=== PATIENT | female | born 1955 | race Two or more races ===

== ENCOUNTER 2022-01-27 19:28 | Inpatient (IN) | payer MEDICARE, OTHER ==
[~2022-01-27] VITALS: Ht 157.5 cm; Wt 43.1 kg
--- NOTE | 2022-01-27 19:50 | NUR ---
BIBRA 89 FROM HOME C/O ABDOMINAL DISTENSION WITH HISTORY OF ASCITES. PT AWAKE AND ALERT TOLERATING RA WELL WITHOUT SOB. CHANGED INTO GOWN AND P-LACED ON MONITOR AND V/S WNL.
--- NOTE | 2022-01-27 20:00 | NUR ---
DR. MYLES RIOS AT PT'S BEDSIDE
--- NOTE | 2022-01-27 20:25 | NUR ---
RAC #20G S/L; PATENT AND INTACT. SHIP STEWARD AT PT'S BEDSIDE
--- NOTE | 2022-01-27 20:29 | NUR ---
PT TAKEN TO CT SCAN VIA [facility]
--- NOTE | 2022-01-27 20:39 | NUR ---
[facility]
[2022-01-27 20:45] LABS: BASOPHILS % (AUTO) 0.2 % (0.0-2.0); EOSINOPHILS % (AUTO) 0.4 % (0.0-6.0); HEMATOCRIT 31 % (33-45); HEMOGLOBIN 10.5 g/dL (11.5-14.8); LYMPHOCYTES # (AUTO) 0.6 K/uL (0.8-4.8); LYMPHOCYTES % (AUTO) 12.3 % (20.0-44.0); MEAN CORPUSCULAR HGB CONC 34 g/dl (31.0-36.0); MEAN CORPUSCULAR VOLUME 105 fL (82-100); MONOCYTES # (AUTO) 0.6 K/uL (0.1-1.30); MONOCYTES % (AUTO) 10.7 % (2.0-12.0); NEUTROPHILS % (AUTO) 76.4 % (43.0-81.0); PLATELET COUNT (AUTO) 132 K/uL (150-450); RED BLOOD CELL COUNT(AUTO) 2.97 MIL/uL (4.0-5.2); WHITE BLOOD COUNT (AUTO) 5.3 K/uL (4.3-11.0)
[2022-01-27 20:51] LABS: CALCIUM, SERUM 9.1 mg/dL (8.5-10.1); CARBON DIOXIDE 19 mmol/L (21-32); CHLORIDE 98 mmol/L (98-107); CREATININE 1.2 mg/dL (0.6-1.3); GLUCOSE 113 mg/dL (74-106); SODIUM SERUM 130 mmol/L (136-145); UREA NITROGEN, BLOOD 79 mg/dL (7-18)
[2022-01-27 20:57] LABS: ALANINE AMINOTRANSFERASE 94 U/L (12-78); ALBUMIN 2.6 g/dL (3.4-5.0); ALKALINE PHOSPHATASE 311 U/L (46-116); ASPARTATE AMINOTRANSFERASE 148 U/L (15-37); BILIRUBIN,DIRECT 7.3 mg/dL (0.0-0.2); LIPASE 129 U/L (73-393); TOTAL PROTEIN, SERUM 6.2 g/dL (6.4-8.2)
[2022-01-27 21:19] LABS: BILIRUBIN,URINE MODERATE (NEGATIVE); LEUKOCYTE ESTERASE ,URINE NEGATIVE (NEGATIVE); NITRITE, URINE NEGATIVE (NEGATIVE); PROTEIN,URINE NEGATIVE (NEGATIVE); UGLUCOSE NEGATIVE (NEGATIVE)
[2022-01-27 21:20] LABS: COLOR,URINE DARK YELLOW (YELLOW)
--- NOTE | 2022-01-27 21:29 | NUR ---
EPIC PANEL PAGED
[2022-01-27 21:30] LABS: BACTERIA,URINE Many /HPF (None Seen); HYALINE CASTS, URINE Rare /LPF (None Seen); RBC,URINE 0-2 /HPF (0-2); SQUAMOUS EPITHELIAL CELL,UR Few /HPF (None Seen); WBC,URINE 0-2 /HPF (0-3)
[2022-01-27 21:31] LABS: CALCIUM OXALATE CRYSTALS,UR Rare /HPF (None Seen)
--- NOTE | 2022-01-27 21:33 | NUR ---
SPOKE TO YESICA (SON) [phone] PER YESICA PT NEEDS LIVER TRANSPLANT
--- NOTE | 2022-01-27 21:39 | NUR ---
COVID ANTIGEN SWAB COLLECTED AND SENT TO LAB
[2022-01-27 21:42] LABS: BILIRUBIN,TOTAL 9.2 mg/dL (0.2-1.0)
--- NOTE | 2022-01-27 22:50 | NUR ---
REPORT GIVEN TO BRANDON Abreu RN FOR MARYCRUZ
[2022-01-27] MEDS ORDERED: Z GUARD REMEDY 4 OZ OINT TP PRN (23:00)
[2022-01-27] MEDS ORDERED: TEMAZEPAM 15 MG CAPSULE PO PRN (23:00)
[2022-01-27] MEDS ORDERED: ALBUMIN 5% 12.5 GM/250 ML BOTTLE IV ONE (23:00)
[2022-01-27] MEDS ORDERED: MORPHINE SULFATE INJ 2 MG/ML DISP.SYRIN IV PRN (23:00)
[2022-01-27] MEDS ORDERED: ONDANSETRON HCL/PF 4 MG/2 ML VIAL IVP PRN (23:00)
--- NOTE | 2022-01-27 23:02 | NUR ---
PT TRANSFERRING TO 3W BED 311 VIA HOSPITAL PROTOCOL. VSS.
[2022-01-27 23:12] VITALS: BP 110/57
--- NOTE | 2022-01-27 23:12 | NUR ---
MS RN ADMITTING NOTE PT TRANSPORTED VIA GURNEY TO UNIT AT THIS TIME. PT ADMITTED TO [facility] FROM ER UNDER BLUEPRINT BLOCKER ASHTYN FOR ADMITTING DX OF SEVERE ASCITES. A/O X3. PT IS STABLE ON ROOM AIR. NO SOB OR S/S OF RESPIRATORY DISTRESS. BREATHING EVEN AND UNLABORED. SKIN IS INTACT AND NOTED WITH YELLOWING OF THE SCLERA. IV ACCESS RAC 20 SL, INTACT AND PATENT. ABDOMEN SOFT, TENDER, AND DISTENDED. 2+ PITTING EDEMA OF BLE NOTED. PT ORIENTED TO STAFF, ROOM, AND UNIT. PT BELONGINGS LIST FILLED OUT AND SIGNED. SAFETY PRECAUTIONS IN PLACE. BED IN LOWEST LOCKED POSITION, HOB ELEVATED, SIDE RAILS UP X2, AND CALL LIGHT AND TABLE WITHIN REACH. ALL NEEDS MET AT THIS TIME.
[2022-01-28 00:21] VITALS: BP 110/57
--- NOTE | 2022-01-28 06:18 | NUR ---
RN NOTE PT COMPLAINED OF ABDOMINAL PAIN 05/06. ADMINISTERED MORPHINE 2 MG FOR SEVERE PAIN ORDERED. MADE COMFORTABLE IN BED. ALL NEEDS MET AT THIS TIME.
--- NOTE | 2022-01-28 06:43 | NUR ---
MS RN CLOSING NOTE PT AWAKE IN BED. A/O X3. PT IS STABLE ON ROOM AIR. NO SOB OR S/S OF RESPIRATORY DISTRESS. BREATHING EVEN AND UNLABORED. IV ACCESS RAC 20 SL, INTACT AND PATENT. SAFETY PRECAUTIONS IN PLACE AT ALL TIMES. BED IN LOWEST LOCKED POSITION, HOB ELEVATED, SIDE RAILS UP X2, AND CALL LIGHT AND TABLE WITHIN REACH. ALL NEEDS MET AT THIS TIME AND WILL ENDORSE TO ONCOMING NURSE FOR MARYCRUZ.
[2022-01-28 06:45] LABS: BASOPHILS % (AUTO) 0.3 % (0.0-2.0); EOSINOPHILS % (AUTO) 0.7 % (0.0-6.0); HEMATOCRIT 29 % (33-45); HEMOGLOBIN 9.8 g/dL (11.5-14.8); LYMPHOCYTES # (AUTO) 0.8 K/uL (0.8-4.8); MEAN CORPUSCULAR HGB CONC 34 g/dl (31.0-36.0); MEAN CORPUSCULAR VOLUME 104 fL (82-100); MONOCYTES # (AUTO) 0.7 K/uL (0.1-1.30); MONOCYTES % (AUTO) 13.8 % (2.0-12.0); NEUTROPHILS # (AUTO) 3.5 K/uL (1.8-8.9); NEUTROPHILS % (AUTO) 69.2 % (43.0-81.0); PLATELET COUNT (AUTO) 126 K/uL (150-450); RED BLOOD CELL COUNT(AUTO) 2.77 MIL/uL (4.0-5.2); WHITE BLOOD COUNT (AUTO) 5.1 K/uL (4.3-11.0)
[2022-01-28 07:30] LABS: CALCIUM, SERUM 8.6 mg/dL (8.5-10.1); CREATININE 1.4 mg/dL (0.6-1.3); MAGNESIUM 2.5 mg/dL (1.8-2.4); PHOSPHORUS 4.3 mg/dL (2.5-4.9); POTASSIUM 3.8 mmol/L (3.5-5.1)
--- NOTE | 2022-01-28 07:32 | NUR ---
RN OPENING NOTE- PT ASLEEP IN BED, EASILY AWAKENED, . A/O X3. PT IS STABLE ON ROOM AIR. NO SOB OR S/S OF RESPIRATORY DISTRESS. BREATHING EVEN AND NON-LABORED. IV ACCESS RAC 20 SL. SAFETY PRECAUTIONS IN PLACE AT ALL TIMES. BED IN LOWEST LOCKED POSITION, HOB ELEVATED, SIDE RAILS UP X2, AND CALL LIGHT AND TABLE WITHIN REACH. ALL NEEDS MET AT THIS TIME . MONITOR / ASSIST
[2022-01-28] MEDS: PANTOPRAZOLE 40 MG TABLET.DR PO SCH (07:51)
[2022-01-28] MEDS ORDERED: ALBUMIN 5% 12.5 GM/250 ML BOTTLE IV ONE (09:00)
[2022-01-28] MEDS ORDERED: SUCR1ORA4 PO (09:24)
[2022-01-28] MEDS ORDERED: SPIR50TA PO (09:24)
[2022-01-28] MEDS ORDERED: CALC500T13 PO (09:24)
[2022-01-28] MEDS ORDERED: TRAM50TA2 PO (09:24)
[2022-01-28] MEDS ORDERED: URSO500T10 PO (09:24)
[2022-01-28] MEDS ORDERED: FURO20TA4 PO (09:24)
[2022-01-28] MEDS ORDERED: PANT40TA49 PO (09:24)
[2022-01-28] MEDS ORDERED: RIFA550T PO (09:24)
[2022-01-28] MEDS ORDERED: LACT1CAP71 PO (09:24)
[2022-01-28] MEDS ORDERED: ALBUMIN 5% 12.5 GM/250 ML BOTTLE IV PRN (09:30)
[2022-01-28] MEDS ORDERED: CALCIUM CARBONATE 500 MG TAB.CHEW PO PRN (12:00)
[2022-01-28] MEDS ORDERED: PANTOPRAZOLE 40 MG TABLET.DR PO SCH (12:00)
[2022-01-28] MEDS ORDERED: URSODIOL 300 MG CAPSULE PO SCH (12:00)
[2022-01-28] MEDS: FUROSEMIDE 20 MG TABLET PO SCH (12:15)
[2022-01-28] MEDS: SUCRALFATE 1 G/10 ML UDC PO SCH ×2 (12:15→17:50)
[2022-01-28] MEDS: RIFAXIMIN 550 MG TABLET PO SCH ×2 (12:16→17:50)
[2022-01-28] MEDS: SPIRONOLACTONE 25 MG TABLET PO SCH (12:16)
--- NOTE | 2022-01-28 14:00 | NUR ---
RN NOTE- PARACENTESIS PERFORMED AT BEDSIDE. 4.1 L REMOVED. TOLERATED WELL. DRSG DRY INTACT
[2022-01-28] MEDS ORDERED: HYDROCODONE/APAP 5/325MG TABLET PO PRN (16:30)
[2022-01-28] MEDS: LACTOBACILLUS RHAMNOSUS GG 1 EACH CAP.SPRINK PO SCH (17:50)
--- NOTE | 2022-01-28 18:48 | NUR ---
RN CLOSING NOTE- NORCO 5 MG TABS Q6HPRN ORDERED W ADEQUATE ANALGESIA PROVIDED. PT COMFORTABLE. PARACENTESIS TODAY W > 4L REMOVED. A/O X3. PT IS STABLE ON ROOM AIR. NO SOB OR S/S OF RESPIRATORY DISTRESS. BREATHING EVEN AND NON-LABORED. IV ACCESS RAC 20 SL. SAFETY PRECAUTIONS IN PLACE AT ALL TIMES. BED IN LOWEST LOCKED POSITION, HOB ELEVATED, SIDE RAILS UP X2, AND CALL LIGHT AND TABLE WITHIN REACH. ALL NEEDS MET AT THIS TIME . MONITOR / ASSIST
--- NOTE | 2022-01-28 19:00 | NUR ---
received in bed asleep awakened when name spoken call light within her reach resp unlaboured bandjonnathane right abd CDI
[2022-01-28] MEDS: URSODIOL 300 MG CAPSULE PO SCH (20:32)
--- NOTE | 2022-01-29 06:29 | NUR ---
CLOSING NOTES RN: alert and orientated X4 c/o SOB this AM Sats 100% asking for 02 placed 1 liter n/c on patient she stated she felt better Bandaid left lower abd S/P paracentesis 01/28 removing 4.5 liter Dressing CDI Uses the bedpan when need to void legs weak
--- NOTE | 2022-01-29 07:43 | NUR ---
MS RN OPENING NOTES RECEIVED PT IN BED ASLEEP, EASILY AROUSABLE BY STIMULI. A/OX4 ABLE TO VERBALIZED NEEDS. NO CARDIAC OR RESPIRATORY DISTRESS NOTED, ON 02 INHALATION @ 1LPM VIA NC TOLERATED WELL. NOTED WITH ABDOMINAL DISTENTION . WITH PERIPHERAL IV LINE ON RAC G#20 SALINE LOCKED. SAFETY PRECAUTIONARY MEASURES MAINTAINED: BED LOCKED AND IN LOWEST POSITION, SIDERAILS UP X2.WILL CONTINUE TO MONITOR. CALL LIGHT IN EASY REACH FOR HELP.
[2022-01-29] MEDS: PANTOPRAZOLE 40 MG TABLET.DR PO SCH (08:27)
[2022-01-29] MEDS: SUCRALFATE 1 G/10 ML UDC PO SCH (09:00)
[2022-01-29] MEDS: LACTOBACILLUS RHAMNOSUS GG 1 EACH CAP.SPRINK PO SCH (09:00)
[2022-01-29] MEDS: FUROSEMIDE 20 MG TABLET PO SCH (09:00)
[2022-01-29] MEDS: URSODIOL 300 MG CAPSULE PO SCH (09:00)
[2022-01-29] MEDS: SPIRONOLACTONE 25 MG TABLET PO SCH (09:00)
[2022-01-29] MEDS: RIFAXIMIN 550 MG TABLET PO SCH (09:00)
[2022-01-29 12:38] LABS: BASOPHILS % (AUTO) 0.2 % (0.0-2.0); HEMATOCRIT 37 % (33-45); HEMOGLOBIN 12.4 g/dL (11.5-14.8); LYMPHOCYTES # (AUTO) 0.6 K/uL (0.8-4.8); LYMPHOCYTES % (AUTO) 8.5 % (20.0-44.0); MEAN CORPUSCULAR HGB CONC 34 g/dl (31.0-36.0); MEAN CORPUSCULAR VOLUME 105 fL (82-100); MONOCYTES # (AUTO) 0.4 K/uL (0.1-1.30); MONOCYTES % (AUTO) 5.8 % (2.0-12.0); NEUTROPHILS # (AUTO) 6.1 K/uL (1.8-8.9); NEUTROPHILS % (AUTO) 85.5 % (43.0-81.0); PLATELET COUNT (AUTO) 153 K/uL (150-450); WHITE BLOOD COUNT (AUTO) 7.1 K/uL (4.3-11.0)
[2022-01-29 12:52] LABS: CALCIUM, SERUM 8.9 mg/dL (8.5-10.1); CREATININE 1.4 mg/dL (0.6-1.3); POTASSIUM 3.8 mmol/L (3.5-5.1)
--- NOTE | 2022-01-29 15:10 | NUR ---
RN DISCHARGED NOTES PT DISCHARGED HOME IN STABLE CONDITION. A/O X4. ABLE TO MAKE NEEDS KNOWN. ALL NEEDS AND CARE ATTENDED WELL. V/S TAKEN, WNL AND RECORDED. PT WITH NO SKIN ISSUES NOTED. ALL BELONGINGS ACCOUNTED FOR AND PT SIGNED BELONGINGS LIST FORM. IV ACCESS ON RAC REMOVED WITH NO ACTIVE BLEEDING NOTED, DRY PRESSURE DRESSING APPLIED AT SITE. HEALTH TEACHINGS /DISCHARGE INSTRUCTIONS GIVEN TO PT AND SHE VERBALIZED UNDERSTANDING. EXIT FOLDER HANDED TO PT. PT'S NAME ARMBAND REMOVED. PT LEFT UNIT VIA WHEELCHAIR AT 1500 ACCOMPANIED BY ADRIENNE BEASLEY. PT'C COUSIN YESICA AT THE [facility] TO TAKE PT'S HOME. MD AND CHARGE NURSE AWARE OF DISCHARGE.
[2022-01-29] MEDS ORDERED: ENSURE ENLIVE 237 ML LIQUID (VANILLA) PO SCH (17:00)
== END 2022-01-29 15:00 | disposition home or self-care (01) | DRG 433 ==
LOC: ER 19:29 → MED 22:30
PROVIDERS: ADMIT Nurse Practitioner Acute Care; ATTEND Nurse Practitioner Acute Care
PROC: 0W9G3ZZ Drainage of Peritoneal Cavity, Percutaneous Approach (ICD-10-PCS; principal; 2022-01-28)
DX: K74.60 Unspecified cirrhosis of liver (principal); R18.8 Other ascites; K76.6 Portal hypertension; E44.0 Moderate protein-calorie malnutrition; Z68.1 Body mass index [BMI] 19.9 or less, adult; E87.1 Hypo-osmolality and hyponatremia; J90 Pleural effusion, not elsewhere classified; K72.10 Chronic hepatic failure without coma; D69.59 Other secondary thrombocytopenia; Z20.822 Contact with and (suspected) exposure to COVID-19; R16.1 Splenomegaly, not elsewhere classified; D69.6 Thrombocytopenia, unspecified; D53.9 Nutritional anemia, unspecified; R74.01 Elevation of levels of liver transaminase levels; R79.89 Other specified abnormal findings of blood chemistry
CPT/HCPCS: 36415; 76942-TC; 80048-TC; 80076-TC; 81001; 82140-TC; 83690-TC; 83735-TC; 84100-TC; 84484-TC; 85025-TC; 85730-TC; 87081-TC; 87086-TC; 97116-TC; 97530-TC; G0378; J2270; P9045